=== PATIENT | male | born 1975 | race Two or more races ===

== ENCOUNTER 2017-02-08 16:12 | Emergency (ER) | payer OTHER ==
[~2017-02-08] VITALS: Ht 182.9 cm; Wt 113.4 kg
[2017-02-08] MEDS ORDERED: PROBIOTIC & AC1 EACH PO (21:39)
[2017-02-08] MEDS ORDERED: DICY20TA PO (21:39)
[2017-02-08] MEDS ORDERED: ZANTAC300 MG PO (21:39)
== END 2017-02-08 22:18 | disposition home or self-care (01) ==
LOC: ER 16:12
DX: K52.89 Other specified noninfective gastroenteritis and colitis (principal); E86.0 Dehydration; A08.8 Other specified intestinal infections

== ENCOUNTER 2017-09-27 17:43 | Emergency (ER) | payer OTHER ==
[~2017-09-27] VITALS: Ht 182.9 cm; Wt 113.4 kg
[~2017-09-27 17:43] MED LIST: DICY20TA PO; PROBIOTIC & AC1 EACH PO; ZANTAC300 MG PO
== END 2017-09-27 21:32 | disposition home or self-care (01) ==
LOC: ER 17:43
DX: M62.830 Muscle spasm of back (principal); M54.5 Low back pain

== ENCOUNTER → 2018-01-27 | Emergency (ER) | payer OTHER ==
[~2018-01-27] VITALS: Ht 182.9 cm; Wt 113.4 kg
[~2018-01-27] MED LIST changes: +CIPRO500 MG PO; +FLAGYL500MG PO; +INTESTINEX680 M1 PO; +ZANTAC150 MG PO
== END | disposition home or self-care (01) ==
LOC: ER 10:12
DX: K52.9 Noninfective gastroenteritis and colitis, unspecified (principal)

== ENCOUNTER 2019-03-22 15:00 | Outpatient (CLI) | payer OTHER | END 2019-03-22 15:03 | disposition home or self-care (01) | LOC: RAD 15:00 | DX: M54.5 Low back pain (principal); S80.11XA Contusion of right lower leg, initial encounter ==

== ENCOUNTER 2019-03-28 04:26 | Emergency (ER) | payer OTHER ==
[~2019-03-28] VITALS: Ht 182.9 cm; Wt 113.4 kg
[2019-03-28] MEDS ORDERED: PRILOSEC OTC20 MG PO (04:42)
== END 2019-03-28 12:25 | disposition home or self-care (01) ==
LOC: ER 04:26
DX: K57.90 Diverticulosis of intestine, part unspecified, without perforation or abscess without bleeding (principal); R10.31 Right lower quadrant pain

== ENCOUNTER 2021-03-14 11:37 | Emergency (ER) | payer OTHER ==
[~2021-03-14] VITALS: Ht 180.3 cm; Wt 127.5 kg
[~2021-03-14 11:37] MED LIST changes: +PRILOSEC OTC20 MG PO
== END 2021-03-14 14:37 | disposition home or self-care (01) ==
LOC: ER 11:37
DX: I10 Essential (primary) hypertension (principal); R51.9 Headache, unspecified

== ENCOUNTER → 2022-10-30 | Emergency (ER) | payer OTHER ==
[~2022-10-30] VITALS: Ht 180.3 cm; Wt 117.9 kg
== END | disposition left against medical advice (07) ==
LOC: ER 00:52
DX: Z53.21 Procedure and treatment not carried out due to patient leaving prior to being seen by health care provider (principal)